=== PATIENT | female | born 1940 | race Caucasian/White ===

== ENCOUNTER 2018-04-11 09:40 | Day surgery (SDC) | payer MEDICARE, OTHER ==
[~2018-04-11 09:40] MED LIST: Acetaminophen TAB* 325 MG PO PRN; Buffered Lidocaine 0.9% SYRIN* 5 ML/SYR SYRINGE INTRADERM ONE; Cyclopentolate 1% OPTH.SOL* 2 ML BTL ONE; Ketorolac 0.5% OPHTH (NF) 0.5 % 5 ML BTL ONE; Lidocaine 1%* 5 ML VIAL ONE; Neomycin/Polymy/Dex OPHTH.OIN* 3.5 GM ONE; Phenylephrine 2.5% OPTH.SOL* 2 ML BTL ONE; Tetracaine 0.5% OPTH.SOL 4 ML* 1 DROP BTL ONE; Tropicamide 1% OPTH.SOL* BTL ONE
[2018-04-11] MEDS ORDERED: Metoclopramide IV* 5 MG/ML 2 ML VIAL IV ONE (11:01)
[2018-04-11] MEDS ORDERED: Metoclopramide IV* 5 MG/ML 2 ML VIAL ONE (11:18)
[2018-04-11] MEDS ORDERED: fentaNYL* 50 MCG/ML 2 ML VIAL (100 MCG VIAL) ONE (12:03)
[2018-04-11] MEDS ORDERED: Midazolam* 1 MG/ML 2 ML VIAL (2 MG) ONE (12:03)
[2018-04-11 12:56] VITALS: BP 131/98
--- NOTE | 2018-04-12 01:26 | OP ---
DATE OF OPERATION/DATE OF DICTATION: 04/11/18 - [place] [facility] DATE OF : 40. SURGEON: Dr. Alexei Eller. APPLICATIONS SALES CONSULTANT: None. ANESTHESIA: Topical with intravenous sedation. PRE-OP DIAGNOSIS: Cataract with astigmatism, left eye. POST-OP DIAGNOSIS: Cataract with astigmatism, left eye. OPERATIVE PROCEDURE: Phacoemulsification and cataract extraction with posterior chamber (Toric) intraocular lens implant, left eye. COMPLICATIONS: None. BLOOD LOSS: None. DESCRIPTION OF PROCEDURE: The patient was seen preoperatively in the holding area, where she was placed in an upright position. A francheska was made at the 6 o' clock position of the limbus of the left eye with a marking pen. The patient was subsequently brought to the operating room and received intravenous sedation. A drop of Tetracaine was placed into her left eye. She was prepped and draped in the usual sterile fashion for ophthalmic surgery and attention was directed to the left eye where a speculum was placed. A paracentesis was created at the 5 o'clock position and 0.1 cc of 1% preservative-free Lidocaine was injected into the anterior chamber followed by DisCoVisc. The eye was digitally stabilized where a 2.75 mm keratome was used to create a triplanar clear corneal incision at the 3 o'clock position. A continuous curvilinear capsulorrhexis was created with a cystotome and Utrata forceps. BSS on a cannula was used to hydrodissect the lens from the capsule. Phacoemulsification was performed in a zwoeic-rxd-jtniplg technique to create four fragments which were removed. Residual cortical material was removed with irrigation and aspiration. Healon was used to inflate the capsular bag. A Suresh marker and marking pen were used to francheska the 100 degree axis at the limbus. An SN6AT4 of 16.0 diopter lens was folded and inserted into the capsular bag. It was dialed to the appropriate axial alignment using a Sinskey hook. Irrigation and aspiration was performed to remove viscoelastic from the eye. BSS on a cannula was used to hydrate the corneal stroma and seal the wound. At the end of the case, the pupil was round and the lens was centered, stable in axial line. The eye pressure appeared normal and the wound was water tight. The speculum was removed and topical Maxitrol ointment was placed on the surface of the eye. The eye was closed, patched and shielded and the patient was sent to the recovery room in stable condition with postoperative instructions and follow-up appointment given. [id number]/[facility] #: [id number] SHASHA
== END 2018-04-11 12:58 | disposition home or self-care (01) ==
LOC: OREAST 09:40
PROVIDERS: ATTEND Ophthalmology
DX: H25.12 Age-related nuclear cataract, left eye (principal); H52.202 Unspecified astigmatism, left eye; I10 Essential (primary) hypertension; E78.5 Hyperlipidemia, unspecified; F41.9 Anxiety disorder, unspecified
CPT/HCPCS: A9270-GY; J2250; J2765; J3010; V2787

== ENCOUNTER 2018-04-18 10:33 | Day surgery (SDC) | payer MEDICARE, OTHER ==
[~2018-04-18 10:33] MED LIST changes: -Cyclopentolate 1% OPTH.SOL* 2 ML BTL ONE; -Ketorolac 0.5% OPHTH (NF) 0.5 % 5 ML BTL ONE; -Lidocaine 1%* 5 ML VIAL ONE; -Neomycin/Polymy/Dex OPHTH.OIN* 3.5 GM ONE; -Phenylephrine 2.5% OPTH.SOL* 2 ML BTL ONE; -Tetracaine 0.5% OPTH.SOL 4 ML* 1 DROP BTL ONE; -Tropicamide 1% OPTH.SOL* BTL ONE
[2018-04-18] MEDS ORDERED: fentaNYL* 50 MCG/ML 2 ML VIAL (100 MCG VIAL) ONE (11:14)
[2018-04-18] MEDS ORDERED: Midazolam* 1 MG/ML 2 ML VIAL (2 MG) ONE (11:14)
[2018-04-18 12:18] VITALS: BP 165/71
[2018-04-18] MEDS ORDERED: Lidocaine 1%* 5 ML VIAL ONE (13:52)
[2018-04-18] MEDS ORDERED: Tetracaine 0.5% OPTH.SOL 4 ML* 1 DROP BTL ONE (13:52)
[2018-04-18] MEDS ORDERED: Cyclopentolate 1% OPTH.SOL* 2 ML BTL ONE (13:52)
[2018-04-18] MEDS ORDERED: Ketorolac 0.5% OPHTH (NF) 0.5 % 5 ML BTL ONE (13:52)
[2018-04-18] MEDS ORDERED: Phenylephrine 2.5% OPTH.SOL* 2 ML BTL ONE (13:52)
[2018-04-18] MEDS ORDERED: Neomycin/Polymy/Dex OPHTH.OIN* 3.5 GM ONE (13:52)
[2018-04-18] MEDS ORDERED: Tropicamide 1% OPTH.SOL* BTL ONE (13:52)
--- NOTE | 2018-04-19 04:05 | OP ---
DATE OF OPERATION: 04/18/18 - [place] DATE OF : 40 SURGEON: Alexei Eller MD TOBACCO SHAKER: None. ANESTHESIA: Topical with intravenous sedation. PRE-OP DIAGNOSIS: Cataract with astigmatism, right eye. POST-OP DIAGNOSIS: Cataract with astigmatism, right eye. OPERATIVE PROCEDURE: Phacoemulsification and cataract extraction with posterior chamber (Toric) intraocular lens implant, right eye. COMPLICATIONS: None. BLOOD LOSS: None. DESCRIPTION OF PROCEDURE: The patient was seen preoperatively in the holding area, where she was placed in an upright position. A francheska was made at the 6 o' clock position of the limbus of her right eye with a marking pen. The patient was subsequently brought to the operating room where she received intravenous sedation and a drop of Tetracaine to the right eye. She was prepped and draped in the usual sterile fashion for ophthalmic surgery and attention was directed to the right eye where a speculum was placed. A paracentesis was created at the 11 o'clock position and 0.1 cc of 1% preservative-free lidocaine was injected into the anterior chamber followed by DisCoVisc. The eye was digitally stabilized while a 2.75 mm keratome was used to create a triplanar clear corneal incision at the 9 o'clock position. A continuous curvilinear capsulorrhexis was created with a cystotome and Utrata forceps. BSS on a cannula was used to hydrodissect the lens from the capsule. Phacoemulsification was performed in a [id number]-ija-[id number] technique to create 4 fragments, which were removed. Residual cortical material was removed with irrigation and aspiration. Healon was used to inflate the capsular bag. A marking pen and Suresh marker were used to francheska the 73-degree axis at the limbus. An SN6AT5 16.5 Diopter lens was folded and inserted into the capsular bag. It was dialed to the appropriate axial alignment with a Sinskey hook. The Sinskey hook remained paracentesis to stabilize the lens while irrigation and aspiration were performed to remove viscoelastic from the eye. The Sinskey hook was removed. BSS on a cannula was used to hydrate the corneal stroma and seal the wound. At the end of the case, the pupil was round and the lens was centered, stable and axially aligned. The eye pressure appeared normal and the wound was watertight. The speculum was removed and topical Maxitrol ointment was placed on the surface of the eye. The eye was closed, patched and shielded and the patient was sent to the recovery room in stable condition with postoperative instructions and followup appointment given. [id number]/[facility] #: [id number] SHASHA
== END 2018-04-18 12:25 | disposition home or self-care (01) ==
LOC: OREAST 10:33
PROVIDERS: ATTEND Ophthalmology
DX: H25.11 Age-related nuclear cataract, right eye (principal); H52.201 Unspecified astigmatism, right eye; I10 Essential (primary) hypertension; F41.9 Anxiety disorder, unspecified; E78.5 Hyperlipidemia, unspecified
CPT/HCPCS: A9270-GY; J2250; J3010; V2787

== ENCOUNTER 2022-07-01 15:28 | Inpatient (IN) ==
[2022-07-01] MEDS ORDERED: Succinylcholine 200 mg VIAL 20 mg/ml 10 ml VIAL (200 mg) ONE (15:30)
[2022-07-01] MEDS ORDERED: Rocuronium 50 mg VIAL 10 mg/ml 5 ml VIAL (50 mg) ONE (15:30)
[2022-07-01] MEDS ORDERED: Propofol 10 mg/ml 100 ML BTL 100 ML ONE (15:41)
[2022-07-01] MEDS ORDERED: Heparin - STEMI 5,000 UNITS/ML 1 ml VIAL IV ONE (15:42)
[2022-07-01] MEDS ORDERED: fentaNYL 100 mcg/2 ml 50 MCG/ML VIAL ONE (15:49)
[2022-07-01] MEDS ORDERED: VERAPAMIL 2.5 MG/ML 2 ML VIAL ** 5 mg/2 ml ONE (15:49)
[2022-07-01] MEDS ORDERED: Heparin 1,000 UNIT/ML 10 ml (10,000 UNITS) CATHLAB/DIALYSIS ONE (15:49)
[2022-07-01] MEDS ORDERED: Heparin 2 UNITS/ML 1000 mls 2,000 ML IV ONE (15:49)
[2022-07-01] MEDS ORDERED: Midazolam 5 mg/5 ml VIAL 1 mg/ml 5 ml VIAL (5 mg) ONE (15:49)
[2022-07-01] MEDS ORDERED: Iohexol 350 (CONTRAST) 100 ML PAK IV ONE (15:52)
[2022-07-01] MEDS ORDERED: nitroGLYCERIN DRIP 25,000 MCG/250 ML BTL ONE (15:52)
[2022-07-01] MEDS ORDERED: Lidocaine 1% MPF 5 ML VIAL ONE (15:52)
[2022-07-01] MEDS: Propofol 10 mg/ml 100 ML BTL 100 ML IV SCH ×2 (16:09→23:40)
[2022-07-01 16:10] LABS: PCO2 Arterial 51 mmHg (35-45); PO2 Arterial 101 mmHg (80-100)
[2022-07-01 16:13] LABS: Hematocrit 35 % (35-47); Hemoglobin 10.8 g/dL (12.0-16.0); Mean Corpuscular HGB Conc 31 g/dL (31-36); Mean Corpuscular Hemoglobin 29 pg (27-31); Mean Corpuscular Volume 95 fL (80-97); Mean Platelet Volume 9.6 fL (7.4-10.4); Platelet Count 78 10^3/uL (150-450); Red Blood Count 3.72 10^6 /uL (3.70-4.87); Red Cell Distribution Width 16 % (10-15); White Blood Count 10.5 10^3/uL (3.5-10.8)
[2022-07-01 16:21] LABS: INR 1.2 (0.89-1.11)
[2022-07-01 16:26] LABS: Urine Appearance Clear; Urine Bilirubin Negative (Negative); Urine Blood 1+ (Small) (Negative); Urine Color Yellow; Urine Glucose Trace (100mg/dL) (Negative); Urine Ketones Negative (Negative); Urine Protein 2+ (100 mg/dL) (Negative); Urine pH 6.5 (5.0-9.0)
[2022-07-01 16:27] LABS: Urine Nitrite Negative (Negative); Urine Urobilinogen 0.2 (Negative) (Negative)
[2022-07-01 16:30] LABS: High Sens Troponin Baseline 169 pg/mL (<15)
[2022-07-01 16:36] LABS: ALT 69 U/L (7-52); AST 81 U/L (13-39); Albumin 3.1 g/dL (3.2-5.2); Albumin/Globulin Ratio 1.1 (1-3); Alcohol, S < 13 mg/dL (<13); Alkaline Phosphatase 58 U/L (35-149); Anion Gap 16 mmol/L (2-11); Blood Urea Nitrogen 17 mg/dL (6-24); CO2 Carbon Dioxide 15 mmol/L (22-32); Calcium 7.7 mg/dL (8.6-10.3); Chloride 108 mmol/L (101-111); Creatine Kinase 65 U/L (10-223); Globulin 2.7 g/dL (2-4); Glucose 242 mg/dL (70-100); Magnesium 2.1 mg/dL (1.9-2.7); Potassium 3.4 mmol/L (3.5-5.0); Sodium 139 mmol/L (135-145); Total Protein 5.8 g/dL (6.4-8.9); eGFR CKD-EPI 38.6 (>60)
[2022-07-01 16:38] LABS: Urine Benzodiazepine Screen None Detected (None Detect); Urine Cannabinoids Screen None Detected (None Detect); Urine Opiates Screen None Detected (None Detect)
[2022-07-01 16:47] LABS: ABS Basophils 0.1 10^3/ul (0-0.2); ABS Eosinophils 0.2 10^3/ul (0-0.6); ABS Lymphocytes 3.7 10^3/ul (1.0-4.8); ABS Monocytes 0.5 10^3/ul (0-0.8); Eosinophil % 1.7 %; Lymphocyte % 35.7 %
[2022-07-01 17:23] LABS: TSH Ultra Thyroid Stim Horm 9.34 mcIU/mL (0.34-5.60)
[2022-07-01] MEDS ORDERED: NS 0.9% 1000 ml BAG 1,000 ML IV SCH (17:30)
[2022-07-01] MEDS ORDERED: Iodixanol (CONTRAST) 320 MG/ML 100 ML SDV IV ONE (17:38)
[2022-07-01 17:53] LABS: Urine Bacteria Absent (Absent); Urine Red Blood Cell 1+(3-5/hpf) (Absent); Urine Squamous Epithelial Cell Present (Absent); Urine White Blood Cell Trace(0-5/hpf) (Absent)
[2022-07-01] MEDS ORDERED: NORMOSOL-R pH 7.4 1000 mL BAG 1,000 ML IV SCH (18:00)
[2022-07-01] MEDS ORDERED: Enoxaparin 40 MG/0.4 ML SYR SUBCUT SCH ×2 (18:00→21:00)
[2022-07-01] MEDS: Chlorhexidine MOUTHWASH 0.12% 15 ML UDC TOPICAL SCH ×2 (18:46→23:41)
[2022-07-01] MEDS ORDERED: Heparin DRIP 25,000 UNITS BAG 25,000 UNITS/500 ML BAG IV SCH (19:00)
[2022-07-01] MEDS ORDERED: fentaNYL 100 mcg/2 ml 50 MCG/ML VIAL IV SLOW PU PRN (19:27)
[2022-07-01] MEDS: Pantoprazole VIAL 40 MG VIAL IV SCH (19:36)
[2022-07-01] MEDS ORDERED: Norepinephrine 16MCG/ML BAGD5W 4,000 MCG/250 ML BAG IV ONE (19:42)
[2022-07-01] MEDS: Norepinephrine 16MCG/ML BAGD5W 4,000 MCG/250 ML BAG IV SCH ×2 (19:54→23:15)
[2022-07-01] MEDS ORDERED: Heparin 5000 UNITS/ML 1 mL VIAL IV SCH (20:00)
[2022-07-01] MEDS ORDERED: Alteplase (100 mg Vial) 100 MG in Premix IV 100 ML IV ONE (20:10)
[2022-07-01] MEDS ORDERED: fentaNYL 100 mcg/2 ml 50 MCG/ML VIAL IV ONE (20:30)
[2022-07-01] MEDS ORDERED: NORMOSOL-R pH 7.4 1000 mL BAG 500 ML IV ONE (21:00)
[2022-07-01 23:18] LABS: ABS Basophils 0.2 10^3/ul (0-0.2); ABS Lymphocytes 0.6 10^3/ul (1.0-4.8); ABS Monocytes 1.4 10^3/ul (0-0.8); ABS Neutrophils 14.7 10^3/ul (1.5-7.7); Eosinophil % 0.1 %; Hematocrit 30 % (35-47); Hemoglobin 9.7 g/dL (12.0-16.0); Lymphocyte % 3.8 %; Mean Corpuscular HGB Conc 32 g/dL (31-36); Mean Corpuscular Hemoglobin 29 pg (27-31); Mean Corpuscular Volume 90 fL (80-97); Mean Platelet Volume 9.4 fL (7.4-10.4); Platelet Count 109 10^3/uL (150-450); Red Blood Count 3.37 10^6 /uL (3.70-4.87); Red Cell Distribution Width 15 % (10-15); White Blood Count 16.9 10^3/uL (3.5-10.8)
[2022-07-01 23:59] LABS: eGFR CKD-EPI 59.8 (>60)
[2022-07-02 01:13] LABS: Hematocrit 34 % (35-47); Hemoglobin 10.6 g/dL (12.0-16.0); Mean Corpuscular HGB Conc 32 g/dL (31-36); Mean Corpuscular Hemoglobin 28 pg (27-31); Mean Corpuscular Volume 89 fL (80-97); Platelet Count 128 10^3/uL (150-450); Red Blood Count 3.82 10^6 /uL (3.70-4.87); Red Cell Distribution Width 15 % (10-15); White Blood Count 18.4 10^3/uL (3.5-10.8)
[2022-07-02] MEDS ORDERED: Lactated Ringers 500 ml BAG 500 ML IV ONE ×2 (02:21→03:26)
[2022-07-02] MEDS: Chlorhexidine MOUTHWASH 0.12% 15 ML UDC TOPICAL SCH ×6 (02:33→22:27)
[2022-07-02] MEDS: Norepinephrine 16MCG/ML BAGD5W 4,000 MCG/250 ML BAG IV SCH ×5 (02:34→18:29)
[2022-07-02 03:17] LABS: ABS Basophils 0.1 10^3/ul (0-0.2); ABS Monocytes 1.6 10^3/ul (0-0.8); ABS Neutrophils 15.7 10^3/ul (1.5-7.7); Eosinophil % 0.1 %; Lymphocyte % 5.3 %
[2022-07-02 03:18] LABS: Burr Cells 3+
[2022-07-02] MEDS: Albumin Human 5% 12.5 GM/250 ML BTL IV SCH ×2 (04:32→05:35)
[2022-07-02 06:11] LABS: ABS Monocytes 1.2 10^3/ul (0-0.8); ABS Neutrophils 12.6 10^3/ul (1.5-7.7); Hematocrit 24 % (35-47); Lymphocyte % 6.9 %; Mean Corpuscular HGB Conc 33 g/dL (31-36); Mean Corpuscular Hemoglobin 29 pg (27-31); Mean Corpuscular Volume 88 fL (80-97); Mean Platelet Volume 9.4 fL (7.4-10.4); Platelet Count 115 10^3/uL (150-450); Red Blood Count 2.73 10^6 /uL (3.70-4.87); Red Cell Distribution Width 15 % (10-15); White Blood Count 14.9 10^3/uL (3.5-10.8)
[2022-07-02 06:55] LABS: Blood Urea Nitrogen 23 mg/dL (6-24); CO2 Carbon Dioxide 21 mmol/L (22-32); Calcium 7.5 mg/dL (8.6-10.3); Chloride 98 mmol/L (101-111); Glucose 255 mg/dL (70-100); Magnesium 1.7 mg/dL (1.9-2.7); Sodium 133 mmol/L (135-145); eGFR CKD-EPI 34.3 (>60)
[2022-07-02 07:02] LABS: Anion Gap 14 mmol/L (2-11)
[2022-07-02] MEDS: Heparin DRIP 25,000 UNITS BAG 25,000 UNITS/500 ML BAG IV SCH (07:32)
[2022-07-02] MEDS: Propofol 10 mg/ml 100 ML BTL 100 ML IV SCH (07:37)
[2022-07-02] MEDS: Pantoprazole VIAL 40 MG VIAL IV SCH ×2 (07:41→22:27)
[2022-07-02] MEDS ORDERED: Magnesium Sulfate 2 gm BAG 2 GM/50 ML BAG IVPB ONE (08:04)
[2022-07-02 08:47] LABS: TSH Ultra Thyroid Stim Horm 2.59 mcIU/mL (0.34-5.60)
[2022-07-02 08:50] LABS: Creatine Kinase 241 U/L (10-223)
[2022-07-02] MEDS ORDERED: Sulfur Hexaflouride MICROSPHR 25 MG VIAL ONE (10:33)
[2022-07-02] MEDS ORDERED: Lactated Ringers 1000 ml BAG 1,000 ML IV ONE (15:33)
[2022-07-02] MEDS: NORMOSOL-R pH 7.4 1000 mL BAG 1,000 ML IV SCH (18:31)
[2022-07-03] MEDS: Chlorhexidine MOUTHWASH 0.12% 15 ML UDC TOPICAL SCH ×4 (02:36→12:30)
[2022-07-03] MEDS: Norepinephrine 16MCG/ML BAGD5W 4,000 MCG/250 ML BAG IV SCH (03:34)
[2022-07-03] MEDS: Propofol 10 mg/ml 100 ML BTL 100 ML IV SCH (03:44)
[2022-07-03] MEDS: Heparin DRIP 25,000 UNITS BAG 25,000 UNITS/500 ML BAG IV SCH (07:01)
[2022-07-03 07:07] LABS: ABS Monocytes 1.2 10^3/ul (0-0.8); Hematocrit 16 % (35-47); Hemoglobin 5.4 g/dL (12.0-16.0); Lymphocyte % 9.2 %; Mean Corpuscular HGB Conc 33 g/dL (31-36); Mean Corpuscular Hemoglobin 29 pg (27-31); Mean Corpuscular Volume 87 fL (80-97); Mean Platelet Volume 10.1 fL (7.4-10.4); Platelet Count 95 10^3/uL (150-450); Red Blood Count 1.87 10^6 /uL (3.70-4.87); Red Cell Distribution Width 15 % (10-15); White Blood Count 11.3 10^3/uL (3.5-10.8)
[2022-07-03 07:28] LABS: Venous Bicarbonate HCO3 21.4 mmol/L (24-28)
[2022-07-03 07:43] LABS: Calcium 7.3 mg/dL (8.6-10.3); Magnesium 2.2 mg/dL (1.9-2.7); Potassium 3.4 mmol/L (3.5-5.0); eGFR CKD-EPI 46.1 (>60)
[2022-07-03 08:13] LABS: PCO2 Arterial 30 mmHg (35-45); PO2 Arterial 90 mmHg (80-100)
[2022-07-03 08:25] LABS: Hematocrit 16 % (35-47); Hemoglobin 5.5 g/dL (12.0-16.0)
[2022-07-03 08:55] LABS: Urine Appearance Cloudy; Urine Bacteria Absent (Absent); Urine Bilirubin Negative (Negative); Urine Blood 3+ (Negative); Urine Glucose Negative (Negative); Urine Ketones Negative (Negative); Urine Nitrite Negative (Negative); Urine Protein 2+(100 mg/dL) (Negative); Urine Red Blood Cell 3+(>10/hpf) (Absent); Urine Specific Gravity 1.008 (1.002-1.030); Urine Urobilinogen Negative (Negative); Urine White Blood Cell Absent (Absent)
[2022-07-03 08:59] LABS: Urine Color Amber
[2022-07-03] MEDS: Pantoprazole VIAL 40 MG VIAL IV SCH ×2 (09:16→20:41)
[2022-07-03] MEDS: NORMOSOL-R pH 7.4 1000 mL BAG 1,000 ML IV SCH (12:31)
[2022-07-03 16:13] LABS: Hematocrit 23 % (35-47); Hemoglobin 7.8 g/dL (12.0-16.0)
[2022-07-03] MEDS: Acetaminophen IV 1 GM/100ML 1,000 MG/100 ML BAG IV PRN (18:14)
[2022-07-04 00:47] LABS: Hematocrit 23 % (35-47); Hemoglobin 7.8 g/dL (12.0-16.0)
[2022-07-04] MEDS: Acetaminophen IV 1 GM/100ML 1,000 MG/100 ML BAG IV PRN (03:54)
[2022-07-04] MEDS: NORMOSOL-R pH 7.4 1000 mL BAG 1,000 ML IV SCH ×2 (04:03→23:09)
[2022-07-04 04:28] LABS: ABS Lymphocytes 0.4 10^3/ul (1.0-4.8); ABS Monocytes 0.4 10^3/ul (0-0.8); ABS Neutrophils 3.8 10^3/ul (1.5-7.7); Hematocrit 23 % (35-47); Hemoglobin 7.6 g/dL (12.0-16.0); Lymphocyte % 8.3 %; Mean Corpuscular HGB Conc 34 g/dL (31-36); Mean Corpuscular Hemoglobin 28 pg (27-31); Mean Corpuscular Volume 85 fL (80-97); Mean Platelet Volume 9.5 fL (7.4-10.4); Platelet Count 64 10^3/uL (150-450); Red Blood Count 2.66 10^6 /uL (3.70-4.87); Red Cell Distribution Width 14 % (10-15); White Blood Count 4.6 10^3/uL (3.5-10.8)
[2022-07-04 04:51] LABS: Albumin 2.8 g/dL (3.2-5.2); Albumin/Globulin Ratio 1.6 (1-3); Calcium 7.2 mg/dL (8.6-10.3); Globulin 1.7 g/dL (2-4); Magnesium 2.1 mg/dL (1.9-2.7); Potassium 3.3 mmol/L (3.5-5.0); Total Bilirubin 1.3 mg/dL (0.2-1.0); Total Protein 4.5 g/dL (6.4-8.9)
[2022-07-04] MEDS: Pantoprazole VIAL 40 MG VIAL IV SCH ×2 (09:01→20:00)
[2022-07-04] MEDS: Enoxaparin 80 MG/0.8 ML SYR SUBCUT SCH ×2 (12:14→23:20)
[2022-07-05] MEDS: Acetaminophen IV 1 GM/100ML 1,000 MG/100 ML BAG IV PRN ×2 (00:54→11:04)
[2022-07-05] MEDS ORDERED: NS 0.9% 500 ml BAG 500 ML IV SCH (02:00)
[2022-07-05 04:54] LABS: ABS Lymphocytes 0.8 10^3/ul (1.0-4.8); ABS Monocytes 0.6 10^3/ul (0-0.8); Eosinophil % 0.8 %; Hematocrit 21 % (35-47); Hemoglobin 6.8 g/dL (12.0-16.0); Mean Corpuscular HGB Conc 33 g/dL (31-36); Mean Corpuscular Hemoglobin 28 pg (27-31); Mean Corpuscular Volume 87 fL (80-97); Mean Platelet Volume 9.2 fL (7.4-10.4); Nucleated Red Blood Cells % 0.1; Platelet Count 88 10^3/uL (150-450); Red Blood Count 2.42 10^6 /uL (3.70-4.87); Red Cell Distribution Width 14 % (10-15); White Blood Count 4.4 10^3/uL (3.5-10.8)
[2022-07-05 05:16] LABS: Potassium 3.1 mmol/L (3.5-5.0); eGFR CKD-EPI 80.7 (>60)
[2022-07-05] MEDS ORDERED: NORMOSOL-R pH 7.4 1000 mL BAG 1,000 ML IV SCH (07:45)
[2022-07-05] MEDS: Pantoprazole VIAL 40 MG VIAL IV SCH ×2 (08:32→22:05)
[2022-07-05] MEDS: KCL 20 MEQ/100 ML IVPREMIX 20 MEQ/100 ML BAG IV SCH ×2 (08:33→10:39)
[2022-07-05] MEDS: Enoxaparin 80 MG/0.8 ML SYR SUBCUT SCH (11:04)
[2022-07-05] MEDS: Lactated Ringers 1000 ml BAG 1,000 ML IV SCH (11:04)
[2022-07-05 12:14] LABS: Hematocrit 28 % (35-47); Hemoglobin 9.1 g/dL (12.0-16.0); Mean Corpuscular HGB Conc 33 g/dL (31-36); Mean Corpuscular Hemoglobin 29 pg (27-31); Mean Corpuscular Volume 88 fL (80-97); Mean Platelet Volume 9.3 fL (7.4-10.4); Platelet Count 100 10^3/uL (150-450); Red Blood Count 3.17 10^6 /uL (3.70-4.87); Red Cell Distribution Width 14 % (10-15); White Blood Count 5.1 10^3/uL (3.5-10.8)
[2022-07-05] MEDS ORDERED: KCL 20 MEQ/100 ML IVPREMIX 20 MEQ/100 ML BAG IV ONE (14:37)
[2022-07-06] MEDS: Lactated Ringers 1000 ml BAG 1,000 ML IV SCH ×2 (01:05→10:22)
[2022-07-06] MEDS: Enoxaparin 80 MG/0.8 ML SYR SUBCUT SCH ×2 (01:37→11:07)
[2022-07-06 05:10] LABS: ABS Lymphocytes 0.6 10^3/ul (1.0-4.8); ABS Monocytes 0.8 10^3/ul (0-0.8); ABS Neutrophils 5.1 10^3/ul (1.5-7.7); Eosinophil % 0.5 %; Hematocrit 27 % (35-47); Hemoglobin 8.9 g/dL (12.0-16.0); Lymphocyte % 9.7 %; Mean Corpuscular HGB Conc 33 g/dL (31-36); Mean Corpuscular Hemoglobin 29 pg (27-31); Mean Corpuscular Volume 88 fL (80-97); Mean Platelet Volume 8.4 fL (7.4-10.4); Platelet Count 148 10^3/uL (150-450); Red Blood Count 3.03 10^6 /uL (3.70-4.87); Red Cell Distribution Width 14 % (10-15); White Blood Count 6.6 10^3/uL (3.5-10.8)
[2022-07-06 05:51] LABS: Calcium 7.5 mg/dL (8.6-10.3); Potassium 3.7 mmol/L (3.5-5.0); eGFR CKD-EPI 88.5 (>60)
[2022-07-06] MEDS: Pantoprazole VIAL 40 MG VIAL IV SCH (09:09)
[2022-07-06] MEDS ORDERED: Furosemide 20 mg/2 ml IV VIAL IV ONE (10:50)
[2022-07-06] MEDS ORDERED: LOSARTAN HYDROCHLOROTHIAZIDE PO SCH (11:00)
[2022-07-06] MEDS: Acetaminophen IV 1 GM/100ML 1,000 MG/100 ML BAG IV PRN (15:14)
[2022-07-06] MEDS: Senna TAB 8.6 mg TAB PO PRN (18:18)
[2022-07-07] MEDS: Enoxaparin 80 MG/0.8 ML SYR SUBCUT SCH ×3 (02:32→23:36)
[2022-07-07 05:12] LABS: ABS Eosinophils 0.1 10^3/ul (0-0.6); ABS Lymphocytes 0.8 10^3/ul (1.0-4.8); ABS Monocytes 0.9 10^3/ul (0-0.8); ABS Neutrophils 5.9 10^3/ul (1.5-7.7); Hematocrit 28 % (35-47); Hemoglobin 9.8 g/dL (12.0-16.0); Mean Corpuscular HGB Conc 35 g/dL (31-36); Mean Corpuscular Hemoglobin 30 pg (27-31); Mean Corpuscular Volume 88 fL (80-97); Mean Platelet Volume 8.6 fL (7.4-10.4); Nucleated Red Blood Cells % 0.1; Platelet Count 193 10^3/uL (150-450); Red Blood Count 3.21 10^6 /uL (3.70-4.87); Red Cell Distribution Width 14 % (10-15); White Blood Count 7.7 10^3/uL (3.5-10.8)
[2022-07-07 05:41] LABS: Calcium 7.9 mg/dL (8.6-10.3); Magnesium 1.8 mg/dL (1.9-2.7); Potassium 3.6 mmol/L (3.5-5.0); eGFR CKD-EPI 82.1 (>60)
[2022-07-07] MEDS: Polyethylene Glycol 3350 17 GM PACKET PO SCH (10:14)
[2022-07-07] MEDS: Lactated Ringers 1000 ml BAG 1,000 ML IV SCH (23:43)
[2022-07-08 08:51] LABS: Hematocrit 31 % (35-47); Mean Corpuscular HGB Conc 32 g/dL (31-36); Mean Corpuscular Hemoglobin 29 pg (27-31); Mean Corpuscular Volume 90 fL (80-97); Mean Platelet Volume 8.5 fL (7.4-10.4); Platelet Count 212 10^3/uL (150-450); Red Blood Count 3.43 10^6 /uL (3.70-4.87); Red Cell Distribution Width 14 % (10-15); White Blood Count 6.7 10^3/uL (3.5-10.8)
[2022-07-08 08:56] LABS: CO2 Carbon Dioxide 19 mmol/L (22-32); Chloride 101 mmol/L (101-111); Magnesium 1.7 mg/dL (1.9-2.7); Sodium 132 mmol/L (135-145)
[2022-07-08 08:57] LABS: Anion Gap 12 mmol/L (2-11)
[2022-07-08 09:01] LABS: Blood Urea Nitrogen 17 mg/dL (6-24); Glucose 81 mg/dL (70-100); eGFR CKD-EPI 89.9 (>60)
[2022-07-08] MEDS: Polyethylene Glycol 3350 17 GM PACKET PO SCH (09:29)
[2022-07-08 10:07] LABS: ABS Eosinophils 0.1 10^3/ul (0-0.6); ABS Lymphocytes 1.2 10^3/ul (1.0-4.8); ABS Monocytes 1.2 10^3/ul (0-0.8); ABS Neutrophils 4.2 10^3/ul (1.5-7.7); Eosinophil % 1.2 %; Lymphocyte % 18.1 %; Nucleated Red Blood Cells % 0.1
[2022-07-08] MEDS: Enoxaparin 80 MG/0.8 ML SYR SUBCUT SCH (12:32)
[2022-07-08] MEDS ORDERED: Magnesium Sulfate 2 gm BAG 2 GM/50 ML BAG IVPB ONE (16:04)
[2022-07-09] MEDS: Enoxaparin 80 MG/0.8 ML SYR SUBCUT SCH ×2 (01:13→12:25)
[2022-07-09 06:35] LABS: Hematocrit 32 % (35-47); Hemoglobin 10.5 g/dL (12.0-16.0); Mean Corpuscular HGB Conc 33 g/dL (31-36); Mean Corpuscular Hemoglobin 29 pg (27-31); Mean Corpuscular Volume 88 fL (80-97); Mean Platelet Volume 8.7 fL (7.4-10.4); Platelet Count 261 10^3/uL (150-450); Red Blood Count 3.59 10^6 /uL (3.70-4.87); Red Cell Distribution Width 14 % (10-15); White Blood Count 7.8 10^3/uL (3.5-10.8)
[2022-07-09 06:44] LABS: ABS Eosinophils 0.3 10^3/ul (0-0.6); ABS Lymphocytes 1.6 10^3/ul (1.0-4.8); ABS Monocytes 1.2 10^3/ul (0-0.8); ABS Neutrophils 4.6 10^3/ul (1.5-7.7); Eosinophil % 4.2 %; Lymphocyte % 20.7 %; Nucleated Red Blood Cells % 0.1
[2022-07-09 06:56] LABS: Blood Urea Nitrogen 17 mg/dL (6-24); CO2 Carbon Dioxide 27 mmol/L (22-32); Calcium 8.3 mg/dL (8.6-10.3); Chloride 100 mmol/L (101-111); Glucose 90 mg/dL (70-100); Sodium 134 mmol/L (135-145); eGFR CKD-EPI 87.9 (>60)
[2022-07-09 06:58] LABS: Anion Gap 7 mmol/L (2-11)
[2022-07-09 07:49] LABS: Potassium, Whole Blood 3.7 mmol/L (3.4-4.5)
[2022-07-09] MEDS: Polyethylene Glycol 3350 17 GM PACKET PO SCH (08:09)
[2022-07-10] MEDS: Enoxaparin 80 MG/0.8 ML SYR SUBCUT SCH ×3 (01:38→23:46)
[2022-07-10] MEDS: Acetaminophen IV 1 GM/100ML 1,000 MG/100 ML BAG IV PRN (02:04)
[2022-07-10] MEDS: Polyethylene Glycol 3350 17 GM PACKET PO SCH (08:32)
[2022-07-10 09:50] LABS: Hematocrit 34 % (35-47); Hemoglobin 11.2 g/dL (12.0-16.0); Mean Corpuscular HGB Conc 33 g/dL (31-36); Mean Corpuscular Hemoglobin 29 pg (27-31); Mean Corpuscular Volume 87 fL (80-97); Mean Platelet Volume 8.1 fL (7.4-10.4); Platelet Count 322 10^3/uL (150-450); Red Blood Count 3.92 10^6 /uL (3.70-4.87); Red Cell Distribution Width 15 % (10-15); White Blood Count 7.2 10^3/uL (3.5-10.8)
[2022-07-10 10:26] LABS: Calcium 8.6 mg/dL (8.6-10.3); Potassium 3.9 mmol/L (3.5-5.0); eGFR CKD-EPI 87.9 (>60)
[2022-07-10 10:39] LABS: ABS Eosinophils 0.3 10^3/ul (0-0.6); ABS Lymphocytes 1.4 10^3/ul (1.0-4.8); ABS Monocytes 1.1 10^3/ul (0-0.8); ABS Neutrophils 4.3 10^3/ul (1.5-7.7); Eosinophil % 4.4 %; Lymphocyte % 19.4 %
[2022-07-11] MEDS: Polyethylene Glycol 3350 17 GM PACKET PO SCH (10:31)
[2022-07-11] MEDS: Enoxaparin 80 MG/0.8 ML SYR SUBCUT SCH (12:12)
[2022-07-11 14:17] LABS: Folate 6.74 ng/mL (5.90-24.80)
[2022-07-12 06:13] LABS: ABS Basophils 0.1 10^3/ul (0-0.2); ABS Eosinophils 0.1 10^3/ul (0-0.6); ABS Lymphocytes 1.2 10^3/ul (1.0-4.8); ABS Monocytes 0.8 10^3/ul (0-0.8); ABS Neutrophils 5.7 10^3/ul (1.5-7.7); Eosinophil % 1.4 %; Hematocrit 31 % (35-47); Hemoglobin 10.2 g/dL (12.0-16.0); Lymphocyte % 14.9 %; Mean Corpuscular HGB Conc 33 g/dL (31-36); Mean Corpuscular Hemoglobin 29 pg (27-31); Mean Corpuscular Volume 88 fL (80-97); Mean Platelet Volume 8.4 fL (7.4-10.4); Nucleated Red Blood Cells % 0.1; Platelet Count 336 10^3/uL (150-450); Red Blood Count 3.56 10^6 /uL (3.70-4.87); Red Cell Distribution Width 15 % (10-15); White Blood Count 7.9 10^3/uL (3.5-10.8)
[2022-07-12 06:29] LABS: Calcium 8.2 mg/dL (8.6-10.3); Potassium 4.4 mmol/L (3.5-5.0); eGFR CKD-EPI 86.9 (>60)
[2022-07-12] MEDS: Polyethylene Glycol 3350 17 GM PACKET PO SCH (10:14)
[2022-07-13 05:27] LABS: ABS Basophils 0.1 10^3/ul (0-0.2); ABS Eosinophils 0.1 10^3/ul (0-0.6); ABS Neutrophils 9.6 10^3/ul (1.5-7.7); Eosinophil % 1.1 %; Hematocrit 34 % (35-47); Hemoglobin 10.8 g/dL (12.0-16.0); Lymphocyte % 8.7 %; Mean Corpuscular HGB Conc 32 g/dL (31-36); Mean Corpuscular Hemoglobin 28 pg (27-31); Mean Corpuscular Volume 90 fL (80-97); Mean Platelet Volume 8.6 fL (7.4-10.4); Platelet Count 371 10^3/uL (150-450); Red Blood Count 3.79 10^6 /uL (3.70-4.87); Red Cell Distribution Width 15 % (10-15); White Blood Count 11.9 10^3/uL (3.5-10.8)
[2022-07-13] MEDS: Polyethylene Glycol 3350 17 GM PACKET PO SCH (10:31)
[2022-07-14 06:53] LABS: ABS Basophils 0.1 10^3/ul (0-0.2); ABS Eosinophils 0.1 10^3/ul (0-0.6); ABS Lymphocytes 1.1 10^3/ul (1.0-4.8); ABS Monocytes 0.9 10^3/ul (0-0.8); ABS Neutrophils 5.8 10^3/ul (1.5-7.7); Eosinophil % 1.6 %; Hematocrit 33 % (35-47); Hemoglobin 10.7 g/dL (12.0-16.0); Lymphocyte % 13.6 %; Mean Corpuscular HGB Conc 33 g/dL (31-36); Mean Corpuscular Hemoglobin 29 pg (27-31); Mean Corpuscular Volume 89 fL (80-97); Mean Platelet Volume 8.7 fL (7.4-10.4); Platelet Count 364 10^3/uL (150-450); Red Blood Count 3.68 10^6 /uL (3.70-4.87); Red Cell Distribution Width 15 % (10-15); White Blood Count 7.9 10^3/uL (3.5-10.8)
[2022-07-14 07:28] LABS: Calcium 8.8 mg/dL (8.6-10.3); Potassium 4.4 mmol/L (3.5-5.0); eGFR CKD-EPI 87.2 (>60)
[2022-07-14] MEDS: Polyethylene Glycol 3350 17 GM PACKET PO SCH ×2 (09:21→17:05)
[2022-07-15] MEDS: Polyethylene Glycol 3350 17 GM PACKET PO SCH (09:24)
[2022-07-16 05:42] LABS: ABS Basophils 0.1 10^3/ul (0-0.2); ABS Eosinophils 0.1 10^3/ul (0-0.6); ABS Neutrophils 4.7 10^3/ul (1.5-7.7); Eosinophil % 1.7 %; Hematocrit 35 % (35-47); Hemoglobin 11.6 g/dL (12.0-16.0); Lymphocyte % 14.5 %; Mean Corpuscular HGB Conc 33 g/dL (31-36); Mean Corpuscular Hemoglobin 29 pg (27-31); Mean Corpuscular Volume 89 fL (80-97); Mean Platelet Volume 8.1 fL (7.4-10.4); Platelet Count 406 10^3/uL (150-450); Red Blood Count 3.95 10^6 /uL (3.70-4.87); Red Cell Distribution Width 14 % (10-15); White Blood Count 6.8 10^3/uL (3.5-10.8)
[2022-07-16] MEDS: Polyethylene Glycol 3350 17 GM PACKET PO SCH (10:52)
[2022-07-17] MEDS: Polyethylene Glycol 3350 17 GM PACKET PO SCH (12:37)
[2022-07-18 07:24] LABS: ABS Basophils 0.1 10^3/ul (0-0.2); ABS Eosinophils 0.2 10^3/ul (0-0.6); ABS Lymphocytes 1.1 10^3/ul (1.0-4.8); ABS Monocytes 1.3 10^3/ul (0-0.8); ABS Neutrophils 4.4 10^3/ul (1.5-7.7); Eosinophil % 2.3 %; Hematocrit 37 % (35-47); Lymphocyte % 15.1 %; Mean Corpuscular HGB Conc 33 g/dL (31-36); Mean Corpuscular Hemoglobin 29 pg (27-31); Mean Corpuscular Volume 90 fL (80-97); Mean Platelet Volume 8.4 fL (7.4-10.4); Platelet Count 424 10^3/uL (150-450); Red Blood Count 4.07 10^6 /uL (3.70-4.87); Red Cell Distribution Width 15 % (10-15)
[2022-07-18 07:40] LABS: Calcium 9.1 mg/dL (8.6-10.3); Potassium 4.7 mmol/L (3.5-5.0); eGFR CKD-EPI 74.6 (>60)
[2022-07-18] MEDS: Polyethylene Glycol 3350 17 GM PACKET PO SCH (11:44)
[2022-07-18] MEDS: Senna TAB 8.6 mg TAB PO PRN (20:52)
[2022-07-19 07:03] LABS: Calcium 9.2 mg/dL (8.6-10.3); Potassium 4.6 mmol/L (3.5-5.0); eGFR CKD-EPI 66.5 (>60)
[2022-07-19] MEDS: Polyethylene Glycol 3350 17 GM PACKET PO SCH (09:22)
[2022-07-19] MEDS ORDERED: NS 0.9% 500 ml BAG 500 ML IV ONE (10:36)
[2022-07-20] MEDS ORDERED: CMCS:Omeprazole 20 mg CAP (NF) PO SCH (06:00)
[2022-07-20 06:14] LABS: ABS Basophils 0.1 10^3/ul (0-0.2); ABS Eosinophils 0.2 10^3/ul (0-0.6); ABS Lymphocytes 1.1 10^3/ul (1.0-4.8); ABS Neutrophils 4.1 10^3/ul (1.5-7.7); Eosinophil % 2.7 %; Hematocrit 34 % (35-47); Hemoglobin 11.1 g/dL (12.0-16.0); Lymphocyte % 16.6 %; Mean Corpuscular HGB Conc 32 g/dL (31-36); Mean Corpuscular Hemoglobin 29 pg (27-31); Mean Corpuscular Volume 89 fL (80-97); Platelet Count 389 10^3/uL (150-450); Red Blood Count 3.85 10^6 /uL (3.70-4.87); Red Cell Distribution Width 14 % (10-15); White Blood Count 6.4 10^3/uL (3.5-10.8)
[2022-07-20 07:22] LABS: Potassium 4.4 mmol/L (3.5-5.0); eGFR CKD-EPI 83.4 (>60)
[2022-07-20] MEDS: Polyethylene Glycol 3350 17 GM PACKET PO SCH (09:58)
[2022-07-20] MEDS: Lansoprazole SUSP ORALSYR 3 MG/ML PO SCH ×2 (11:18→11:23)
[2022-07-20 12:01] VITALS: BP 94/62
== END 2022-07-20 12:00 | DRG 208 ==
LOC: ED 15:28 → CHICATH 16:19 → SUATTDRO 17:20 → ICU 17:20 → MEDTELE 07-07 00:06
PROVIDERS: ADMIT Internal Medicine; ATTEND Hospitalist